=== PATIENT | male | born 1965 ===

== ENCOUNTER 2018-09-18 10:44 | Day surgery (SDC) | payer BC ==
[~2018-09-18 10:44] MED LIST: Lactated Ringers 1,000 ML IV SCH
--- NOTE | 2018-09-18 13:31 | PCM.PREANE ---
Preanesthetic Assessment - Anesthesia/Transfusion/Family Hx Anesthesia History: No Prior Anesthesia Family History of Anesthesia Reaction: No Transfusion History: No Prior Transfusion(s) Intubation History: Unknown - Review of Systems General: No Symptoms Pulmonary: No Symptoms Cardiovascular: No Symptoms Gastrointestinal: Hematochezia Neurological: No Symptoms Other: Reports: None - Physical Assessment NPO Status Date: 09/17/18 NPO Status Time: 23:00 O2 Sat by Pulse Oximetry: 95 Respiratory Rate: 18 Vital Signs: Last Vital Signs Temp 37.5 C 09/18/18 13:00 Pulse 88 09/18/18 13:00 Resp 18 09/18/18 13:00 BP 143/89 H 09/18/18 13:00 Pulse Ox 95 09/18/18 13:00 Height: 6 ft 2 in Weight: 130.181 kg ASA Class: 2 Mental Status: Alert & Oriented x3 Airway Class: Mallampati = 2 Dentition: Reports: Normal Dentition (broken cap on front upper incisor x1) Thyro-Mental Finger Breadths: 3 Mouth Opening Finger Breadths: 3 ROM/Head Extension: Full Lungs: Clear to Auscultation, Normal Respiratory Effort Cardiovascular: Regular Rate, Regular Rhythm - Allergies Allergies/Adverse Reactions: Allergies Allergy/AdvReac Type Severity Reaction Status Date / Time No Known Allergies Allergy Verified 09/15/18 09:14 - Blood Blood Available: No - Anesthesia Plan Pre-Op Medication Ordered: None - Acknowledgements Anesthesia Type Planned: MAC Pt an Appropriate Candidate for the Planned Anesthesia: Yes Alternatives and Risks of Anesthesia Discussed w Pt/Guardian: Yes Pt/Guardian Understands and Agrees with Anesthesia Plan: Yes PreAnesthesia Questionnaire Cardiovascular History: Reports: Hypertension Neurological History: Reports: Concussion Endocrine/Metabolic History: Reports: Obesity/BMI 30+ - SUBSTANCE USE Smoking Status *Q: Current Every Day Smoker Tobacco Use Within Last Twelve Months: Smokeless Tobacco Recreational Drug Use History: No - HOME MEDS Home Medications: Home Meds Lisinopril/Hydrochlorothiazide [Lisinopril-Hctz 20-25 mg Tab] 1 tab PO DAILY [History] - CURRENT (IN HOUSE) MEDS Current Meds: Current Medications Lactated Ringer's (Ringers, Lactated) 1,000 mls @ 125 mls/hr IV ASDIRECTED [facility] Last Admin: 09/18/18 13:15 Dose: 125 mls/hr
[2018-09-18] MEDS ORDERED: Ondansetron 4 MG/2 ML SDV ONE (13:58)
[2018-09-18] MEDS ORDERED: Midazolam 1 MG/ML 2 ML SDV ONE (13:59)
[2018-09-18] MEDS ORDERED: Propofol 200 MG/20 ML SDV ONE (13:59)
[2018-09-18] MEDS ORDERED: fentaNYL 100 MCG/2 ML SDV ONE (13:59)
--- NOTE | 2018-09-18 14:30 | PCM.POSTAN ---
POST ANESTHESIA ASSESSMENT - MENTAL STATUS Mental Status: Alert, Oriented - RESPIRATORY Respiratory Status: Respiratory Rate WNL, Airway Patent, O2 Saturation Stable - CARDIOVASCULAR CV Status: Pulse Rate WNL, Blood Pressure Stable - GASTROINTESTINAL GI Status: No Symptoms - PAIN Pain Score: 0 - POST OP HYDRATION Hydration Status: Adequate & Stable - OBSERVATIONS Free Text/Narrative:: No anesthesia problems,patient skipped recovery room stage of postoperative care.
--- NOTE | 2018-09-18 14:33 | PCM.OPNOTE ---
- General Post-Op/Procedure Note Date of Surgery/Procedure: 09/18/18 Operative Procedure(s): Attempted colonoscopy with biopsy. Circumferential obstructing rectosigmoid neoplasm Pre Op Diagnosis: Rectal bleeding Post-Op Diagnosis: Circumferential obstructing neoplasm of the rectosigmoid Anesthesia Technique: MAC (ASA II) Primary Surgeon: Lion Watson Condition: Good Free Text/Narrative:: CPT CODE 01200
[2018-09-18] MEDS ORDERED: Lactated Ringers 1,000 ML IV SCH (14:45)
[2018-09-18 15:15] LABS: BLOOD UREA NITROGEN,BUN 15 mg/dL (7.0-18.0); CARBON DIOXIDE,CO2 27.4 mmol/L (21.0-32.0); CHLORIDE,CL 108 mmol/L (98-107); GLUCOSE RANDOM 87 mg/dL (74-106); POTASSIUM,K 3.6 mmol/L (3.5-5.1); SODIUM,NA 141 mmol/L (136-148)
--- NOTE | 2018-09-18 15:29 | OR ---
SURGEON: Lion Watson M.D. DATE OF PROCEDURE: 09/18/2018 OPERATION PERFORMED: Attempted colonoscopy with biopsy obstructing rectosigmoid neoplasm. PRIMARY SURGEON: Lion Watson M.D. ANESTHESIA: MAC. ASA CLASSIFICATION: II. PREOPERATIVE DIAGNOSIS: Two-year history of intermittent rectal bleeding with no other change in bowel habits, decreased caliber of stool, unexplained weight loss or family history of colon cancer. POSTOPERATIVE DIAGNOSIS: Circumferential obstructing neoplasm of the rectosigmoid. DESCRIPTION OF PROCEDURE: The patient was taken to the endoscopy room and positioned on the endoscopy table in the left lateral decubitus position. Time-out was called for appropriate identification of the patient and procedure. Monitored anesthesia care was provided. The colonoscope was inserted into the rectum and advanced to approximately 25-30 cm at the junction of the rectosigmoid. There is a circumferential obstructing neoplasm. I am unable to advance the colonoscope above this area and elected to abort the procedure to avoid perforation. Several biopsies were obtained. The patient also has a small polyp just below the obstructing mass. The colonoscope was withdrawn to the distal rectum and retroflexed to visualize the anal orifice from above. No acute hemorrhoidal changes were noted. Multiple photographs of the obstructing neoplasm were obtained. The patient will get a CEA today and further diagnostic workup as appropriate. Please note, the patient was taken to the day surgery area in stable condition. AYESHA / BETY /[id number]
== END 2018-09-18 15:14 | disposition home or self-care (01) ==
LOC: MW.SDS 10:44
PROVIDERS: ATTEND Surgery
DX: C19 Malignant neoplasm of rectosigmoid junction (principal); I10 Essential (primary) hypertension; F17.290 Nicotine dependence, other tobacco product, uncomplicated; E66.9 Obesity, unspecified; Z68.36 Body mass index [BMI] 36.0-36.9, adult; Z79.899 Other long term (current) drug therapy
CPT/HCPCS: 36415; 45331; 80048; 82378; 85025; J2250; J2405; J2704; J3010; J7120; 88305

== ENCOUNTER 2019-03-06 11:28 | Emergency (ER) | payer BC ==
--- NOTE | 2019-03-06 11:37 | EDM.PDOC ---
ED HPI GENERAL MEDICAL PROBLEM - General Chief Complaint: Upper Extremity Injury/Pain Stated Complaint: HURT RT SHOULDER Time Seen by Provider: 03/06/19 11:30 Source of Information: Reports: Patient History Limitations: Reports: No Limitations - History of Present Illness INITIAL COMMENTS - FREE TEXT/NARRATIVE: HISTORY AND PHYSICAL: History of present illness: Patient is a 53-year-old male who presents to the emergency room with complaints of right shoulder pain. He states he was walking outside when he slipped and fell on the ice landing on his right elbow and then to his shoulder. He denies hitting his head or having any loss of consciousness. He denies any other extremity involvement and offers no systemic complaints. Review of systems: As per history of present illness and below otherwise all systems reviewed and negative. Past medical history: As per history of present illness and as reviewed below otherwise noncontributory. Surgical history: As per history of present illness and as reviewed below otherwise noncontributory. Social history: See social history for further information Family history: As per history of present illness and as reviewed below otherwise noncontributory. Physical exam: General: Well-developed and well-nourished 53-year-old male. Alert and oriented. Nontoxic-appearing and in no acute distress. HEENT: Atraumatic, normocephalic, pupils equal and reactive bilaterally, negative for conjunctival pallor or scleral icterus, mucous membranes moist, TMs normal bilaterally, throat clear, neck supple, nontender, trachea midline. No drooling or trismus noted. No meningeal signs. No hot potato voice noted. Lungs: Clear to auscultation, breath sounds equal bilaterally, chest nontender. Heart: S1S2, regular rate and rhythm without overt murmur Abdomen: Soft, nondistended, nontender. Negative for masses or hepatosplenomegaly. Negative for costovertebral tenderness. C-spine/Back: No pinpoint vertebral tenderness upon palpation. No crepitus, step -offs or obvious deformities. Patient is ambulatory into the emergency room without difficulty or deficit. Able to rock back on heels and walk on toes. Denies any urinary or fecal incontinence. Denies any numbness, tingling or saddle paresthesia. Skin: Intact, warm, dry. No lesions or rashes noted. Extremities: No significant pain with palpation of the right elbow. Pain with range of motion involving the right shoulder. No clavicle or scapulary pain. He does have passive range of motion but states it is too painful for active range of motion. Strong radial pulse. Capillary refill less than 3 seconds. Otherwise moves all other extremities per self without difficulty or deficits, negative for cords or calf pain. Neurovascular unremarkable. Neuro: Awake, alert, oriented. Cranial nerves II through XII unremarkable. Cerebellum unremarkable. Motor and sensory unremarkable throughout. Exam nonfocal. Notes: X-ray shows no acute findings. Sling applied with education. Encouraged him to follow-up with an orthopedic provider. Medication and supportive care measures were reviewed and discussed. Voices understanding and is agreeable to plan of care. Denies any further questions or concerns at this time. Diagnostics: Elbow and shoulder x-ray Therapeutics: Sling Prescription: Tramadol (#15) Impression: Fall Right shoulder injury Plan: 1. Rest, ice, elevate the affected extremity. Please wear the splint as directed. 2. Tylenol and/or Ibuprofen as needed for pain management. 3. Follow up with the Orthopedic provider as we discussed. Return to the ED as needed and as discussed. Definitive disposition and diagnosis as appropriate pending reevaluation and review of above. Onset: Today Onset Date: 03/06/19 right elbow Pain Score (Numeric/FACES): 3 - Related Data Allergies Allergy/AdvReac Type Severity Reaction Status Date / Time No Known Allergies Allergy Verified 09/15/18 09:14 Home Meds: Home Meds Lisinopril/Hydrochlorothiazide [Lisinopril-Hctz 20-25 mg Tab] 1 tab PO DAILY [History] traMADol [Ultram] 50 mg PO Q4H PRN #15 tab 03/06/19 [Rx] Past Medical History Cardiovascular History: Reports: Hypertension Neurological History: Reports: Concussion Endocrine/Metabolic History: Reports: Obesity/BMI 30+ Review of Systems - Review of Systems Review Of Systems: Comprehensive ROS is negative, except as noted in HPI. ED EXAM, GENERAL - Physical Exam Exam: See Below (See dictation) Course - Vital Signs Last Recorded V/S: Last Vital Signs Temp 97.6 F 03/06/19 11:40 Pulse 62 03/06/19 11:40 Resp 16 03/06/19 11:40 BP 170/90 H 01/21/20 11:40 Pulse Ox 95 03/06/19 11:40 - Orders/Labs/Meds Orders: Active Orders 24 hr Category Date Time Status DME for Discharge [COMM] Stat Oth 03/06/19 12:13 Ordered Departure - Departure Time of Disposition: 12:42 Disposition: Home, Self-Care 01 Clinical Impression: Fall Qualifiers: Encounter type: initial encounter Qualified Code(s): W19.XXXA - Unspecified fall, initial encounter Right shoulder injury Qualifiers: Encounter type: initial encounter Qualified Code(s): S49.91XA - Unspecified injury of right shoulder and upper arm, initial encounter - Discharge Information Prescriptions: traMADol [Ultram] 50 mg PO Q4H PRN #15 tab PRN Reason: Pain Referrals: PCP,None [Primary Care Provider] - Forms: ED Department Discharge Additional Instructions: The following information is given to patients seen in the emergency department who are being discharged to home. This information is to outline your options for follow-up care. We provide all patients seen in our emergency department with a follow-up referral. The need for follow-up, as well as the timing and circumstances, are variable depending upon the specifics of your emergency department visit. If you don't have a primary care physician on staff, we will provide you with a referral. We always advise you to contact your personal physician following an emergency department visit to inform them of the circumstance of the visit and for follow-up with them and/or the need for any referrals to a consulting specialist. The emergency department will also refer you to a specialist when appropriate. This referral assures that you have the opportunity for follow-up care with a specialist. All of these measure are taken in an effort to provide you with optimal care, which includes your follow-up. Under all circumstances we always encourage you to contact your private physician who remains a resource for coordinating your care. When calling for follow-up care, please make the office aware that this follow-up is from your recent emergency room visit. If for any reason you are refused follow-up, please contact the [facility] Emergency Department at and asked to speak to the emergency department charge nurse. [facility] Primary Care [address] [place] [id number] [facility] [address] [place] [address] 1. Rest, ice, elevate the affected extremity. Please wear the splint as directed. 2. Tylenol and/or Ibuprofen as needed for pain management. 3. Follow up with the Orthopedic provider as we discussed. Return to the ED as needed and as discussed. Sepsis Event Note - Focused Exam Vital Signs: Vital Signs Temp Pulse Resp BP Pulse Ox 03/06/19 11:40 97.6 F 62 16 170/90 H 95 Date Exam was Performed: 03/06/19 Time Exam was Performed: 12:42 - My Orders Last 24 Hours: My Active Orders 03/06/19 12:13 DME for Discharge [COMM] Stat - Assessment/Plan Last 24 Hours: My Active Orders 03/06/19 12:13 DME for Discharge [COMM] Stat
--- NOTE | 2019-03-06 12:32 | CR ---
Right elbow: 3 views of the right elbow were obtained. Joint spaces are preserved. No fracture, dislocation or other bony abnormality is appreciated. Impression: 1. No abnormality is identified on right elbow study. Diagnostic code #1 This report was dictated in [place] Standard Time
--- NOTE | 2019-03-06 12:33 | CR ---
Right shoulder: 3 views of the right shoulder were obtained. Comparison: No previous right shoulder imaging. Mild deformity of the clavicle is seen most likely due to old healed fracture. Glenohumeral joint is normal. No acute fracture, dislocation or other bony abnormality is identified. Impression: 1. Probable old healed fracture deformity within the right clavicular shaft. 2. 3 view right shoulder study is otherwise unremarkable. Diagnostic code #2 This report was dictated in [place] Standard Time
== END 2019-03-06 12:55 | disposition home or self-care (01) ==
LOC: MW.ED 11:28
DX: S49.91XA Unspecified injury of right shoulder and upper arm, initial encounter (principal); I10 Essential (primary) hypertension; E66.9 Obesity, unspecified; Z68.34 Body mass index [BMI] 34.0-34.9, adult; Z79.899 Other long term (current) drug therapy; W00.0XXA Fall on same level due to ice and snow, initial encounter
CPT/HCPCS: 73030-26-RT; 73030-RT; 73080-26-RT; 73080-RT; 99283-25

== ENCOUNTER 2019-05-04 10:12 | Emergency (ER) | payer BC ==
[2019-05-04 11:47] LABS: BLOOD UREA NITROGEN,BUN 20 mg/dL (7.0-18.0); CARBON DIOXIDE,CO2 31.1 mmol/L (21.0-32.0); CHLORIDE,CL 109 mmol/L (98-107); GLUCOSE RANDOM 100 mg/dL (74-106); POTASSIUM,K 3.8 mmol/L (3.5-5.1); SODIUM,NA 144 mmol/L (136-148)
--- NOTE | 2019-05-04 14:22 | EDM.PDOC ---
ED HPI GENERAL MEDICAL PROBLEM - General Chief Complaint: General Stated Complaint: BLEEDING AFTER POLYP REMOVAL SURGERY YESTERDAY. Time Seen by Provider: 05/04/19 10:32 Source of Information: Reports: Patient History Limitations: Reports: No Limitations - History of Present Illness INITIAL COMMENTS - FREE TEXT/NARRATIVE: This 53 year old male presents to the ED with a chief complaint of dark blood coming from his rectum since he had his colonoscopy done in [place] and he had a large polyp removed. He states that the polyp once removed was cauterized and a clip was applied from what his GI doctor told him. He states that after the procedure he ate a hamburger and some fries. The patient has a history of colon cancer that was removed 11/10/18. He said that his colonoscopy was done to rule out any further tumor. He has a history of iron deficiency anemia. - Related Data Allergies Allergy/AdvReac Type Severity Reaction Status Date / Time No Known Allergies Allergy Verified 05/04/19 10:31 Home Meds: Home Meds Lisinopril/Hydrochlorothiazide [Lisinopril-Hctz 20-25 mg Tab] 1 tab PO DAILY [History] Past Medical History Cardiovascular History: Reports: Hypertension Neurological History: Reports: Concussion Endocrine/Metabolic History: Reports: Obesity/BMI 30+ Oncologic (Cancer) History: Reports: Colon - Infectious Disease History Infectious Disease History: Reports: Chicken Pox - Past Surgical History GI Surgical History: Reports: Colon, Polypectomy Other GI Surgeries/Procedures: colon cancer Social & Family History - Family History Family Medical History: Noncontributory - Tobacco Use Smoking Status *Q: Current Status Unknown Years of Tobacco use: 40 Packs/Tins Daily: 0.3 - Recreational Drug Use Recreational Drug Use: No ED ROS GENERAL - Review of Systems Review Of Systems: See Below Constitutional: Reports: No Symptoms HEENT: Reports: No Symptoms Respiratory: Reports: No Symptoms Cardiovascular: Reports: No Symptoms Endocrine: Reports: No Symptoms GI/Abdominal: Reports: Other (rectal bleeding from colonoscopy done yesterday.) : Reports: No Symptoms Musculoskeletal: Reports: No Symptoms Skin: Reports: No Symptoms Neurological: Reports: No Symptoms ED EXAM, GENERAL - Physical Exam Exam: See Below Exam Limited By: No Limitations General Appearance: Alert, WD/WN, No Apparent Distress Throat/Mouth: Normal Inspection, Normal Lips, Normal Teeth, Normal Gums, Normal Oropharynx, Normal Voice, No Airway Compromise Head: Atraumatic, Normocephalic Neck: Normal Inspection, Supple, Non-Tender, Full Range of Motion Respiratory/Chest: No Respiratory Distress, Lungs Clear, Normal Breath Sounds, No Accessory Muscle Use Cardiovascular: Normal Peripheral Pulses, No Edema, No JVD, No Murmur, Tachycardia (sinus) Peripheral Pulses: 2+: Dorsalis Pedis (L), 3+: Radial (L), Radial (R), Dorsalis Pedis (R) GI/Abdominal: Normal Bowel Sounds, Soft, Non-Tender, No Organomegaly, No Distention, Other (midline surgical scar consistent with intra-abdominal surgery ) (Male) Exam: Deferred Rectal (Males) Exam: Deferred Back Exam: Normal Inspection Extremities: Normal Inspection Neurological: Alert, Oriented, CN II-XII Intact, Normal Reflexes Psychiatric: Normal Affect, Normal Mood Skin Exam: Warm, Dry, Intact, Normal Color Lymphatic: No Adenopathy Course - Vital Signs Text/Narrative:: I reviewed the patient lab with him. I told him that his bleeding is most likely due to eating shortly after the colonoscopy with the polyp excision. He will be discharged. He agrees with the discharge plan. Last Recorded V/S: Last Vital Signs Temp 96.8 F L 05/04/19 10:28 Pulse 107 H 05/04/19 10:28 Resp 16 05/04/19 10:28 BP 134/93 H 05/04/19 10:28 Pulse Ox 97 05/04/19 10:28 - Orders/Labs/Meds Orders: Active Orders 24 hr Category Date Time Status UA RFX CHRIS AND CULT IF INDIC [URIN] Stat Lab 05/04/19 10:35 Ordered Labs: Laboratory Tests 05/04/19 05/04/19 Range/Units 11:10 11:10 WBC 10.30 (4.0-11.0) K/uL RBC 4.34 L (4.50-5.90) M/uL Hgb 11.0 L (13.0-17.0) g/dL Hct 35.7 L (38.0-50.0) % MCV 82.3 (80.0-98.0) fL MCH 25.3 L (27.0-32.0) pg MCHC 30.8 L (31.0-37.0) g/dL RDW Std Deviation 59.7 (28.0-62.0) fl RDW Coeff of Mal 20 H (11.0-15.0) % Plt Count 244 (150-400) K/uL MPV 9.00 (7.40-12.00) fL Neut % (Auto) 72.8 (48.0-80.0) % Lymph % (Auto) 13.3 L (16.0-40.0) % [place] % (Auto) 13.0 (0.0-15.0) % Eos % (Auto) 0.7 (0.0-7.0) % Baso % (Auto) 0.2 (0.0-1.5) % Neut # (Auto) 7.5 H (1.4-5.7) K/uL Lymph # (Auto) 1.4 (0.6-2.4) K/uL [place] # (Auto) 1.3 H (0.0-0.8) K/uL Eos # (Auto) 0.1 (0.0-0.7) K/uL Baso # (Auto) 0.0 (0.0-0.1) K/uL Nucleated RBC % 0.0 /100WBC Nucleated RBCs # 0 K/uL Sodium 144 (136-148) mmol/L Potassium 3.8 (3.5-5.1) mmol/L Chloride 109 H (98-107) mmol/L Carbon Dioxide 31.1 (21.0-32.0) mmol/L BUN 20 H (7.0-18.0) mg/dL Creatinine 1.0 (0.8-1.3) mg/dL Est Cr Clr Drug Dosing 97.04 mL/min Estimated GFR (MDRD) > 60.0 ml/min Glucose 100 (74-106) mg/dL Calcium 8.3 L (8.5-10.1) mg/dL Total Bilirubin 0.3 (0.2-1.0) mg/dL AST 13 L (15-37) IU/L ALT 22 (14-63) IU/L Alkaline Phosphatase 51 (46-116) U/L Total Protein 6.5 (6.4-8.2) g/dL Albumin 3.0 L (3.4-5.0) g/dL Globulin 3.5 (2.6-4.0) g/dL Albumin/Globulin Ratio 0.9 (0.9-1.6) Departure - Departure Time of Disposition: 14:22 Disposition: Home, Self-Care 01 Condition: Good Clinical Impression: Post-op bleeding Qualifiers: Surgical complication system/body Area: digestive system Procedure type: digestive system Qualified Code(s): K91.840 - Postprocedural hemorrhage of a digestive system organ or structure following a digestive system procedure - Discharge Information *PRESCRIPTION DRUG MONITORING PROGRAM REVIEWED*: Yes *COPY OF PRESCRIPTION DRUG MONITORING REPORT IN PATIENT GOMEZ: Yes Referrals: PCP,None [Primary Care Provider] - Forms: ED Department Discharge Additional Instructions: Take all medications as directed. Follow up with your PCP in the next two to three days. Drink plenty of clear liquids for the next 12 hours and advance your diet as tolerated. Rest for the next 24 hours. Return to the ED if your condition gets worse or should you have any questions or concerns. The following information is given to patients seen in the emergency department who are being discharged to home. This information is to outline your options for follow-up care. We provide all patients seen in our emergency department with a follow-up referral. The need for follow-up, as well as the timing and circumstances, are variable depending upon the specifics of your emergency department visit. If you don't have a primary care physician on staff, we will provide you with a referral. We always advise you to contact your personal physician following an emergency department visit to inform them of the circumstance of the visit and for follow-up with them and/or the need for any referrals to a consulting specialist. The emergency department will also refer you to a specialist when appropriate. This referral assures that you have the opportunity for follow-up care with a specialist. All of these measure are taken in an effort to provide you with optimal care, which includes your follow-up. Under all circumstances we always encourage you to contact your private physician who remains a resource for coordinating your care. When calling for follow-up care, please make the office aware that this follow-up is from your recent emergency room visit. If for any reason you are refused follow-up, please contact the [facility] Emergency Department at and asked to speak to the emergency department charge nurse. Sepsis Event Note - Evaluation Sepsis Screening Result: No Definite Risk - Focused Exam Vital Signs: Vital Signs Temp Pulse Resp BP Pulse Ox 05/04/19 10:28 96.8 F L 107 H 16 134/93 H 97 Date Exam was Performed: 05/04/19 Time Exam was Performed: 14:26
== END 2019-05-04 14:55 | disposition home or self-care (01) ==
LOC: MW.ED 10:12
DX: K91.840 Postprocedural hemorrhage of a digestive system organ or structure following a digestive system procedure (principal); I10 Essential (primary) hypertension; E66.9 Obesity, unspecified; Z68.34 Body mass index [BMI] 34.0-34.9, adult; F17.210 Nicotine dependence, cigarettes, uncomplicated; Z79.899 Other long term (current) drug therapy
CPT/HCPCS: 36415; 80053; 81001; 85025; 87086; 87088; 87186; 99283